=== PATIENT | female | born 1940 | race Caucasian/White ===

== ENCOUNTER 2017-12-20 02:44 | Inpatient (IN) | payer OTHER, MEDICAID ==
[2017-12-20] MEDS ORDERED: DIGOXIN 500 MCG INJ IV (02:56)
[2017-12-20] MEDS: ASPIRIN 81 MG TAB PO (03:28)
[2017-12-20 03:29] LABS: ADD MAN DIFF? NO
[2017-12-20 03:47] LABS: INR 1.01; PROTIME 13.4 Sec (11.9-14.9)
[2017-12-20 03:48] LABS: PARTIAL THROMBOPLASTIN TIME 33.2 Sec (25.0-35.0)
[2017-12-20 03:50] LABS: ABNORMAL IP MESSAGE 1; BASOPHILS % 0.4 % (0.0-2.0); EOSINOPHILS % 0.3 % (0.0-7.0); HEMOGLOBIN 15.3 g/dl (12.0-16.0); LYMPHOCYTES # 0.6 10^3/ul (0.8-2.9); LYMPHOCYTES % 7.5 % (15.0-51.0); MEAN CORPUSCULAR HGB CONC 31.9 g/dl (32.0-37.0); MEAN CORPUSCULAR VOLUME 87.9 fl (82.0-101.0); MEAN PLATELET VOLUME 9.3 fl (7.4-10.4); MONOCYTE # 0.3 10^3/ul (0.3-0.9); MONOCYTES % 3.4 % (0.0-11.0); NEUTROPHIL # 6.7 10^3/ul (1.6-7.5); NEUTROPHILS % 85.5 % (39.0-77.0); PLATELET COUNT 141 10^3/UL (140-415); RED BLOOD COUNT 5.46 10^6/ul (4.20-5.40)
[2017-12-20 03:50] LABS: WHITE BLOOD COUNT 7.8 10^3/ul (4.8-10.8)
[2017-12-20] MEDS: DILTIAZEM 25 MG INJ IV ×2 (03:50→16:04)
[2017-12-20 03:51] LABS: ALANINE AMINOTRANSFERASE 20 IU/L (13-69); ALBUMIN 4.4 g/dl (3.3-4.9); ALBUMIN/GLOBULIN RATIO 1.29; ALKALINE PHOSPHATASE 135 IU/L (42-121); ANION GAP 22 (8-16); ASPARTATE AMINO TRANSFERASE 26 IU/L (15-46); BILIRUBIN,INDIRECT 0.8 mg/dl (0-1.1); BILIRUBIN,TOTAL 0.8 mg/dl (0.2-1.3); BLOOD UREA NITROGEN 19 mg/dl (7-20); CALCIUM 9.8 mg/dl (8.4-10.2); CARBON DIOXIDE 25 mmol/L (21-31); CHLORIDE 100 mmol/L (97-110); CREATININE 0.88 mg/dl (0.44-1.00); GLUCOSE 144 mg/dl (70-220); LIPASE 78 U/L (23-300); POTASSIUM 4.2 mmol/L (3.5-5.1); SODIUM 143 mmol/L (135-144); TOTAL PROTEIN 7.8 g/dl (6.1-8.1)
[2017-12-20 03:52] LABS: POSITIVE DIFF @See below
[2017-12-20 04:02] LABS: B-TYPE NATRIURETIC PEPTIDE 2420 PG/ML (0-450)
[2017-12-20] MEDS: ENALAPRILAT 1.25 MG INJ IV (04:03)
[2017-12-20 04:32] LABS: TROPONIN-I 0.126 ng/ml (0.00-0.12)
[2017-12-20 05:15] LABS: DIGOXIN 15.3 ng/ml (1.0-2.0)
[2017-12-20 05:30] LABS: ADD UMIC YES; UR ASCORBIC ACID NEGATIVE (NEGATIVE); UR BACTERIA FEW /HPF (NONE SEEN); UR BILIRUBIN (Dip) NEGATIVE (NEGATIVE); UR BLOOD (Dip) NEGATIVE (NEGATIVE); UR CLARITY SLIGHTLY CLOUDY (CLEAR); UR COLOR AMBER (YELLOW); UR GLUCOSE (Dip) NEGATIVE (NEGATIVE); UR KETONES (Dip) NEGATIVE (NEGATIVE); UR LEUKOCYTE ESTERASE (Dip) NEGATIVE Leu/ul (NEGATIVE); UR MUCUS FEW /HPF (NONE SEEN); UR NITRITE (Dip) NEGATIVE (NEGATIVE); UR RBC 1 /HPF (0-5); UR SPECIFIC GRAVITY (Dip) 1.025 (1.003-1.030); UR TOTAL PROTEIN (Dip) 2+ mg/dl (NEGATIVE); UR UROBILINOGEN (Dip) 2+ mg/dL (NEGATIVE); UR WBC 0 /HPF (0-5)
[2017-12-20] MEDS ORDERED: ACETAMINOPHEN 650MG/20.3ML CUP PO (05:30)
[2017-12-20] MEDS ORDERED: NITROGLYCERIN (SL) 0.4 MG TAB SL (05:30)
[2017-12-20] MEDS ORDERED: morphine 2 MG INJ IV (05:30)
[2017-12-20] MEDS ORDERED: ONDANSETRON 4 MG INJ IV (05:30)
[2017-12-20] MEDS: SOD CHLORIDE IVPB (05:57)
[2017-12-20] MEDS: DIGOXIN IMMUNE FAB IVPB (05:57)
[2017-12-20] MEDS ORDERED: MIDAZOLAM 1 MG/ML 2 ML INJ (07:00)
[2017-12-20 07:55] LABS: MAGNESIUM 1.8 mg/dl (1.7-2.5)
[2017-12-20 07:55] LABS: POTASSIUM 5.1 mmol/L (3.5-5.1)
[2017-12-20] MEDS: FAMOTIDINE 20 MG INJ IV ×2 (08:47→21:30)
[2017-12-20] MEDS: APIXABAN 5 MG TABLET PO ×2 (08:48→21:30)
[2017-12-20] MEDS: ASPIRIN (EC) 81 MG TAB PO (08:48)
[2017-12-20] MEDS: MEGESTROL 40 MG TAB PO ×3 (08:49→21:00)
[2017-12-20] MEDS: DILTIAZEM 30 MG TAB PO ×2 (08:49→21:00)
[2017-12-20] MEDS ORDERED: DILTIAZEM (CD) 180 MG CAP PO (09:00)
[2017-12-20] MEDS ORDERED: ALBUTEROL/IPRATROPIUM (NEB) 3 ML AMP HHN (10:30)
[2017-12-20] MEDS: SOD CHLORIDE 0.9% 1,000 ML IV (11:15)
[2017-12-20 12:17] LABS: TROPONIN-I 0.119 ng/ml (0.00-0.12)
[2017-12-20] MEDS: FUROSEMIDE 40 MG INJ IV (13:55)
[2017-12-20] MEDS: ALBUTEROL/IPRATROPIUM (NEB) 3 ML AMP HHN ×2 (14:17→20:48)
[2017-12-20] MEDS ORDERED: DILTIAZEM-D5W 125MG/125ML DRIP 125 ML IV ×3 (16:00→19:30)
[2017-12-20] MEDS: AMIODARONE 150MG/D5W BOLUS 100 ML IV (16:05)
[2017-12-20] MEDS: DILTIAZEM-D5W 125MG/125ML DRIP 125 ML IV (16:05)
[2017-12-20 16:18] LABS: ERYTHROCYTE SEDIMENTATION RATE 1 mm/Hr (0-30)
[2017-12-20 16:54] LABS: TROPONIN-I 0.119 ng/ml (0.00-0.12)
[2017-12-20 19:44] LABS: TROPONIN-I 0.114 ng/ml (0.00-0.12)
[2017-12-20] MEDS: ATORVASTATIN 20 MG TAB PO (21:00)
[2017-12-20] MEDS: HALOPERIDOL 5 MG INJ IM (21:30)
[2017-12-20] MEDS: LORAZEPAM 2 MG INJ IV (21:30)
[2017-12-20] MEDS: MIRTAZAPINE 15 MG TAB PO (21:46)
[2017-12-21] MEDS: AMIODARONE 150MG/D5W BOLUS 100 ML IV (03:10)
[2017-12-21 03:48] LABS: ADD MAN DIFF? NO
[2017-12-21 04:06] LABS: WHITE BLOOD COUNT 6.9 10^3/ul (4.8-10.8)
[2017-12-21 04:06] LABS: BASOPHILS % 0.3 % (0.0-2.0); EOSINOPHILS # 0.1 10^3/ul (0.0-0.5); HEMATOCRIT 47.3 % (37.0-47.0); HEMOGLOBIN 15.2 g/dl (12.0-16.0); LYMPHOCYTES # 0.9 10^3/ul (0.8-2.9); LYMPHOCYTES % 12.4 % (15.0-51.0); MEAN CORPUSCULAR HEMOGLOBIN 27.6 pg (29.0-33.0); MEAN CORPUSCULAR HGB CONC 32.1 g/dl (32.0-37.0); MEAN CORPUSCULAR VOLUME 85.8 fl (82.0-101.0); MEAN PLATELET VOLUME 9.3 fl (7.4-10.4); MONOCYTE # 0.5 10^3/ul (0.3-0.9); NEUTROPHIL # 5.5 10^3/ul (1.6-7.5); NEUTROPHILS % 79.2 % (39.0-77.0); PLATELET COUNT 175 10^3/UL (140-415); RED BLOOD COUNT 5.51 10^6/ul (4.20-5.40)
[2017-12-21 04:09] LABS: ANION GAP 19 (8-16); BLOOD UREA NITROGEN 17 mg/dl (7-20); CALCIUM 9.3 mg/dl (8.4-10.2); CARBON DIOXIDE 31 mmol/L (21-31); CHLORIDE 100 mmol/L (97-110); CREATININE 0.83 mg/dl (0.44-1.00); GLUCOSE 115 mg/dl (70-220); MAGNESIUM 1.7 mg/dl (1.7-2.5); PHOSPHORUS 3.6 mg/dl (2.5-4.9); POTASSIUM 3.3 mmol/L (3.5-5.1); SODIUM 147 mmol/L (135-144)
[2017-12-21 04:21] LABS: TROPONIN-I 0.103 ng/ml (0.00-0.12)
[2017-12-21 04:36] LABS: DIGOXIN 1.6 ng/ml (1.0-2.0)
[2017-12-21] MEDS: AMIODARONE 900 MG in DEXTROSE 5% 482 ML IV (04:45)
[2017-12-21] MEDS: POTASSIUM CHLORIDE 100 ML IVPB (06:32)
[2017-12-21] MEDS ORDERED: METOPROLOL 5 MG INJ (07:16)
[2017-12-21] MEDS: METOPROLOL 5 MG INJ IV (07:38)
[2017-12-21] MEDS: ALBUTEROL/IPRATROPIUM (NEB) 3 ML AMP HHN (08:00)
[2017-12-21] MEDS ORDERED: LEVALBUTEROL (NEB) 1.25 MG/0.5 ML AMP HHN (09:00)
[2017-12-21] MEDS: FAMOTIDINE 20 MG INJ IV ×2 (09:59→20:06)
[2017-12-21] MEDS ORDERED: POTASSIUM CHLORIDE 50 ML IVPB (10:00)
[2017-12-21] MEDS: APIXABAN 5 MG TABLET PO ×2 (11:24→20:06)
[2017-12-21] MEDS: DILTIAZEM 30 MG TAB PO ×3 (11:24→20:06)
[2017-12-21] MEDS: ASPIRIN (EC) 81 MG TAB PO (11:24)
[2017-12-21] MEDS: MEGESTROL 40 MG TAB PO ×3 (11:25→20:05)
[2017-12-21 14:39] LABS: TROPONIN-I 0.093 ng/ml (0.00-0.12)
[2017-12-21] MEDS: FUROSEMIDE 40 MG INJ IV (14:39)
[2017-12-21] MEDS: LEVALBUTEROL (NEB) 1.25 MG/0.5 ML AMP HHN ×2 (14:45→20:17)
[2017-12-21] MEDS: hydrALAzine 20 MG INJ IV (15:42)
[2017-12-21 19:22] LABS: TROPONIN-I 0.087 ng/ml (0.00-0.12)
[2017-12-21] MEDS ORDERED: METOPROLOL 5 MG INJ IV (19:30)
[2017-12-21] MEDS: MIRTAZAPINE 15 MG TAB PO (20:06)
[2017-12-21] MEDS: ATORVASTATIN 20 MG TAB PO (20:06)
[2017-12-21] MEDS: DOCUSATE SODIUM 100 MG CAP PO (22:04)
[2017-12-22] MEDS ORDERED: LORAZEPAM 2 MG INJ (00:11)
[2017-12-22] MEDS: LORAZEPAM 2 MG INJ IV (01:44)
[2017-12-22] MEDS: SOD CHLORIDE 0.9% 1,000 ML IV (02:00)
[2017-12-22 06:36] LABS: ALBUMIN 4.2 g/dl (3.3-4.9); ANION GAP 19 (8-16); BLOOD UREA NITROGEN 23 mg/dl (7-20); CALCIUM 9.2 mg/dl (8.4-10.2); CARBON DIOXIDE 30 mmol/L (21-31); CHLORIDE 103 mmol/L (97-110); CREATININE 1.05 mg/dl (0.44-1.00); GLUCOSE 100 mg/dl (70-220); MAGNESIUM 1.8 mg/dl (1.7-2.5); PHOSPHORUS 3.5 mg/dl (2.5-4.9); POTASSIUM 3.6 mmol/L (3.5-5.1); SODIUM 148 mmol/L (135-144)
[2017-12-22] MEDS: LEVALBUTEROL (NEB) 1.25 MG/0.5 ML AMP HHN ×3 (08:02→20:05)
[2017-12-22] MEDS ORDERED: LORAZEPAM 2 MG INJ IV ×2 (09:00)
[2017-12-22] MEDS: ASPIRIN (EC) 81 MG TAB PO ×3 (09:00→10:51)
[2017-12-22] MEDS: APIXABAN 5 MG TABLET PO ×3 (09:00→10:50)
[2017-12-22] MEDS: POLYETHYLENE GLYCOL 17 GM PACKET PO ×3 (09:00→10:51)
[2017-12-22] MEDS: DILTIAZEM 30 MG TAB PO ×4 (09:00→20:30)
[2017-12-22] MEDS: POTASSIUM CHLORIDE 20 MEQ /SW 100 ML IVPB (09:48)
[2017-12-22] MEDS: FAMOTIDINE 20 MG INJ IV (11:50)
[2017-12-22] MEDS ORDERED: HALOPERIDOL 5 MG INJ IM (14:00)
[2017-12-22] MEDS: FUROSEMIDE 40 MG INJ IV (14:00)
[2017-12-22] MEDS: METOPROLOL 25 MG TAB PO ×2 (14:05→20:29)
[2017-12-22] MEDS: MIRTAZAPINE 15 MG TAB PO (20:29)
[2017-12-22] MEDS: ATORVASTATIN 20 MG TAB PO (20:29)
[2017-12-23] MEDS: DILTIAZEM 30 MG TAB PO ×2 (03:28→13:39)
[2017-12-23] MEDS: DIPHENHYDRAMINE 25 MG CAP PO (03:41)
[2017-12-23 07:03] LABS: ALBUMIN 4.1 g/dl (3.3-4.9); ANION GAP 19 (8-16); BLOOD UREA NITROGEN 23 mg/dl (7-20); CALCIUM 9.5 mg/dl (8.4-10.2); CARBON DIOXIDE 28 mmol/L (21-31); CHLORIDE 106 mmol/L (97-110); GLUCOSE 101 mg/dl (70-220); MAGNESIUM 2.1 mg/dl (1.7-2.5); PHOSPHORUS 3.3 mg/dl (2.5-4.9); POTASSIUM 4.2 mmol/L (3.5-5.1); SODIUM 149 mmol/L (135-144)
[2017-12-23] MEDS: LEVALBUTEROL (NEB) 1.25 MG/0.5 ML AMP HHN ×2 (08:18→14:00)
[2017-12-23] MEDS: POLYETHYLENE GLYCOL 17 GM PACKET PO (09:00)
[2017-12-23] MEDS: APIXABAN 5 MG TABLET PO (11:55)
[2017-12-23] MEDS: ASPIRIN (EC) 81 MG TAB PO (11:56)
[2017-12-23] MEDS: FAMOTIDINE 20 MG TAB PO (11:57)
[2017-12-23] MEDS: METOPROLOL 25 MG TAB PO (11:57)
[2017-12-23] MEDS: FUROSEMIDE 40 MG TAB PO (11:57)
[2017-12-24] MEDS ORDERED: INFLUENZA VIRUS VACCINE 0.5 ML (DISPENSING) IM* (09:00)
== END 2017-12-23 16:00 | disposition hospice, home (50) | DRG 308 ==
LOC: ICU 12-22 05:54 → E/R 02:44 → ICU 04:08
PROC: 5A09357 Assistance with Respiratory Ventilation, Less than 24 Consecutive Hours, Continuous Positive Airway Pressure (ICD-10-PCS; principal; 2017-12-20)
PROC: 5A2204Z Restoration of Cardiac Rhythm, Single (ICD-10-PCS; 2017-12-20)
DX: I48.0 Paroxysmal atrial fibrillation (principal); I50.33 Acute on chronic diastolic (congestive) heart failure; J96.21 Acute and chronic respiratory failure with hypoxia; J96.22 Acute and chronic respiratory failure with hypercapnia; E87.0 Hyperosmolality and hypernatremia; N17.9 Acute kidney failure, unspecified; E87.1 Hypo-osmolality and hyponatremia; I48.2 Chronic atrial fibrillation; I11.0 Hypertensive heart disease with heart failure; I42.9 Cardiomyopathy, unspecified; E86.0 Dehydration; E78.5 Hyperlipidemia, unspecified; E87.6 Hypokalemia; J98.4 Other disorders of lung; I25.2 Old myocardial infarction; F03.90 Unspecified dementia, unspecified severity, without behavioral disturbance, psychotic disturbance, mood disturbance, and anxiety; I25.10 Atherosclerotic heart disease of native coronary artery without angina pectoris; D69.6 Thrombocytopenia, unspecified; Z86.73 Personal history of transient ischemic attack (TIA), and cerebral infarction without residual deficits; Z95.0 Presence of cardiac pacemaker; Z99.81 Dependence on supplemental oxygen; Z90.710 Acquired absence of both cervix and uterus; Z79.82 Long term (current) use of aspirin; T46.0X5A Adverse effect of cardiac-stimulant glycosides and drugs of similar action, initial encounter
CPT/HCPCS: 36415; 70450; 71045; 80048; 80053; 80069; 80162; 81001; 82962; 83690; 83735; 83880; 84100; 84132; 84443; 84484; 85025; 85610; 85651; 85730; 87081; 93005; 93306; 94640; 94660; 94664; 96374; 96375; 99291-25